=== PATIENT | female | born 1950 | race Caucasian/White ===

== ENCOUNTER 2022-05-22 15:52 | Outpatient (CLI) | payer OTHER, MEDICARE, SELFPAY | END 2022-05-22 15:53 | disposition home or self-care (01) | PROVIDERS: PCP Family Medicine; Visit Provider Family Medicine | DX: Z00.00 Encounter for general adult medical examination without abnormal findings (principal); I10 Essential (primary) hypertension; E78.5 Hyperlipidemia, unspecified; Z11.59 Encounter for screening for other viral diseases | CPT/HCPCS: 80053; 80061; 86803 ==

== ENCOUNTER 2022-05-31 14:37 | Outpatient (CLI) | payer OTHER, MEDICARE, SELFPAY ==
--- NOTE | 2022-05-31 15:00 | CRLHL7_ITS ---
For Patients: As a result of the Century Cures Act, medical imaging exams and procedure reports are released immediately into your electronic medical record. You may view this report before your referring provider. If you have questions, please contact your health care provider. CLINICAL HISTORY: Screening TECHNIQUE: Elias scale and color Doppler images were acquired of the abdominal aorta and iliac arteries. FINDINGS: There is no evidence of aneurysm formation or aortic dissection. Proximally, the aorta measures 1.7 cm in diameter, mid 1.7 cm, and distally tapers to a measurement of 1 cm. The common iliac arteries are patent and measure 0.5 cm on the left and 0.5 cm in diameter on the right. Incidental 5 centimeter left hepatic cyst IMPRESSION: No abdominal aortic aneurysm. Dictated by Laura Turcios MD @ 05/31/2022 3:37:50 PM (Electronically Signed)
--- NOTE | 2022-05-31 16:00 | CRLHL7_ITS ---
For Patients: As a result of the Century Cures Act, medical imaging exams and procedure reports are released immediately into your electronic medical record. You may view this report before your referring provider. If you have questions, please contact your health care provider. INDICATION: Lung cancer screening. TECHNIQUE: Low-dose lung cancer screening non-contrast CT chest. Dose reduction techniques were used. COMPARISON: None. FINDINGS: NODULES: 5 millimeter peripheral left lower lobe pulmonary nodule on LUNGS AND PLEURA: Mild emphysema. MEDIASTINUM: Normal. CORONARY ARTERY CALCIFICATION: None LIMITED UPPER ABDOMEN: Left 4.6 centimeter cyst MUSCULOSKELETAL: Suspicious bony lesions IMPRESSION: 1. 5 millimeter left lobe LUNG-RADS CATEGORY: 2: Benign. Continue annual screening with low-dose CT chest in 12 months. Please note that all CT scans at this facility use dose modulation, iterative reconstruction, and/or weight-based dosing when appropriate to reduce radiation dose to as low as reasonably achievable. Dictated by Laura Turcios MD @ 05/31/2022 3:49:42 PM (Electronically Signed)
== END 2022-05-31 14:38 | disposition home or self-care (01) ==
LOC: US 14:39
PROVIDERS: PCP Family Medicine; Visit Provider Family Medicine
DX: Z13.6 Encounter for screening for cardiovascular disorders (principal); F17.200 Nicotine dependence, unspecified, uncomplicated; Z12.2 Encounter for screening for malignant neoplasm of respiratory organs; R91.1 Solitary pulmonary nodule; M89.9 Disorder of bone, unspecified
CPT/HCPCS: 71271; 76706

== ENCOUNTER 2022-06-01 11:45 | Outpatient (CLI) | payer OTHER, MEDICARE, SELFPAY ==
--- NOTE | 2022-06-01 15:00 | CRLHL7_ITS ---
For Patients: As a result of the Century Cures Act, medical imaging exams and procedure reports are released immediately into your electronic medical record. You may view this report before your referring provider. If you have questions, please contact your health care provider. DXA BONE MINERAL DENSITY STUDY Reason for exam: Osteoporosis. Current height (in): 66. Weight (lb): 140. Menopause age: 22. Ethnicity: White. 1. Have you had a previous hip or vertebral fracture? No. 2. Have you had any fractures during your adult life which did not result from significant trauma (e.g., auto accident)? No. 3. Did either of your parents have a hip fracture? No. 4. Do you smoke? No. 5. Have you ever taken Glucocorticoids? No. 6. Do you have rheumatoid arthritis? No. 7. Do you have secondary osteoporosis? No. 8. Do you drink 3 or more alcoholic drinks per day? No. 9. Are you being treated for osteoporosis? No. 10. Have you ever taken any of the following medications: Actonel, Evista, Fosamax, Miacalcin, Reclast, Boniva, Forteo, HRT (i.e., estrogen/hormone therapy), Protelos, Prolia, Vitamin D, Calcium, other ??? please specify. ANSWER: No. 11. Do you have any of the following medical conditions: Anorexia or bulimia, asthma or emphysema, end stage renal disease, hyperparathyroidism, any seizure disorders, cancer, inflammatory bowel diseases, hysterectomy, other ??? please specify. ANSWER: No. 12. What was your maximum height (inches)? Not provided. 13. Do you perform weight bearing exercise regularly? Not provided. 14. Do you regularly consume dairy products? Not provided. 15. Do you drink caffeinated beverages? Not provided. If female: 16. At what age did your period start? Not provided. 17. Are you premenopausal? No. 18. How many full-term pregnancies have you had? Not provided. 19. Have you ever missed your period for more than 6 months in a row (not including or menopause)? Not provided. TECHNIQUE: Bone mineral density study was performed using the [employer]. FINDINGS: The results of the study expressed as bone mineral density (BMD) are as follows: Lumbar spine L1 to L4: BMD: 0.779 g/cm2. T-score: -2.4. Z-score: -0.3 Neck Left: BMD: 0.555 g/cm2. T-score: -2.6. Z-score: -0.8 Right: BMD: 0.623 g/cm2. T-score: -2.0. Z-score: -0.2 Total Left: BMD: 0.775 g/cm2. T-score: -1.4. Z-score: 0.2 Right: BMD: 0.838 g/cm2. T-score: -0.9. Z-score: 0.7 IMPRESSION: Osteoporosis. *Comparison exams done prior to 08/2019 were performed on different unit, [facility]. COMPARISON: Compared with scan of 07/21/2020, the bone mineral density has decreased by 1.2 percent at the spine and increased by 2.3 percent at the hip. DOMO HOYOS M.D. Diagnostic/Nuclear Medicine Radiologist [email or web address] JMN:ryan davis/Dictated by: Domo Hoyos MD @ 06/01/2022 2:36:00 PM (Electronically Signed)
== END 2022-06-01 11:46 | disposition home or self-care (01) ==
PROVIDERS: PCP Family Medicine; Visit Provider Family Medicine
DX: M81.0 Age-related osteoporosis without current pathological fracture (principal)
CPT/HCPCS: 77080

== ENCOUNTER 2022-08-14 14:34 | Outpatient (CLI) | payer OTHER, MEDICARE, SELFPAY ==
--- NOTE | 2022-08-14 14:40 | CRLHL7_ITS ---
For Patients: As a result of the Century Cures Act, medical imaging exams and procedure reports are released immediately into your electronic medical record. You may view this report before your referring provider. If you have questions, please contact your health care provider. BILATERAL SCREENING MAMMOGRAM WITH COMPUTER-AIDED DETECTION AND TOMOSYNTHESIS TECHNIQUE: CC and MLO views were obtained. These mammographic images have been obtained using full-field digital technique. These mammographic images were interpreted with the benefit of computer-aided detection. Breast Tomosynthesis was used in this interpretation. COMPARISON FILM: 06/03/21, 01/12/20, 12/02/18. FINDINGS: The breasts are heterogeneously dense, which may obscure small masses IMPRESSION: There is no radiographic evidence for malignancy. ASSESSMENT: BI-RADS Category 2: Benign RECOMMENDATION: Routine screening mammogram in 1 year. A lay language report of this examination will be provided to the patient. Lobito Vogel M.D. Diagnostic Radiologist [email or web address] LUIS FERNANDO/Dictated by: Lobito Vogel MD @ 08/15/2022 1:24:00 PM (Electronically Signed)
== END 2022-08-14 14:35 | disposition home or self-care (01) ==
LOC: MAMMO 14:35
PROVIDERS: PCP Family Medicine; Visit Provider Family Medicine
DX: Z12.31 Encounter for screening mammogram for malignant neoplasm of breast (principal); R92.2 Inconclusive mammogram
CPT/HCPCS: 77063; 77067

== ENCOUNTER 2023-06-04 14:35 | Outpatient (CLI) | payer MEDICARE, OTHER, SELFPAY ==
--- NOTE | 2023-06-04 15:00 | CT_ITS ---
Patient: BERYL YOST Facility:?[facility] Patient ID:?[id number] Site Patient ID:?[id number]. Site :?[id number] Study:?CT-Chest LOW DOSE-06/04/2023 3:00:08 PM Ordering Physician:?DR. PORTILLO Final Report: INDICATION: Lung cancer screening. History of smoking. High risk patient with greater than 20 pack-year smoking history. TECHNIQUE: Low-dose lung cancer screening non-contrast CT chest. Dose reduction techniques were used. COMPARISON: 05/31/[address] FINDINGS: NODULES: 5 mm anterior left lower lobe nodule image 120 series 3, unchanged. No new nodules. LUNGS AND PLEURA: Hyperinflation. MEDIASTINUM: Normal. CORONARY ARTERY CALCIFICATION: None. LIMITED UPPER ABDOMEN: Liver cysts. MUSCULOSKELETAL: Normal. IMPRESSION: 1. Negative for lung cancer screening purposes. LUNG-RADS CATEGORY 2: Benign. Continue annual screening with low-dose CT chest in 12 months. Please note that all CT scans at this facility use dose modulation, iterative reconstruction, and/or weight-based dosing when appropriate to reduce radiation dose to as low as reasonably achievable. Dictated by George Diez MD @ 06/05/2023 10:28:56 AM Signed by:?George Diez MD @06/05/2023 10:28:56 AM (Electronic Signature)
== END 2023-06-04 14:36 | disposition home or self-care (01) ==
PROVIDERS: PCP Family Medicine; Visit Provider Family Medicine
DX: Z12.2 Encounter for screening for malignant neoplasm of respiratory organs (principal); Z13.6 Encounter for screening for cardiovascular disorders; F17.200 Nicotine dependence, unspecified, uncomplicated
CPT/HCPCS: 71271

== ENCOUNTER 2023-08-23 14:43 | Outpatient (CLI) | payer OTHER, MEDICARE, SELFPAY ==
--- NOTE | 2023-08-23 15:00 | CRLHL7_ITS ---
For Patients: As a result of the Century Cures Act, medical imaging exams and procedure reports are released immediately into your electronic medical record. You may view this report before your referring provider. If you have questions, please contact your health care provider. BILATERAL SCREENING MAMMOGRAM WITH COMPUTER-AIDED DETECTION AND TOMOSYNTHESIS TECHNIQUE: CC and MLO views were obtained. These mammographic images have been obtained using full-field digital technique. These mammographic images were interpreted with the benefit of computer-aided detection. Breast Tomosynthesis was used in this interpretation. COMPARISON FILM: 08/14/22, 06/03/21, 01/12/20. FINDINGS: The breasts are heterogeneously dense, which may obscure small masses. IMPRESSION: There is no radiographic evidence for malignancy. ASSESSMENT: BI-RADS Category 1: Negative RECOMMENDATION: Routine screening mammogram in 1 year. A lay language report of this examination will be provided to the patient. Lobito Vogel M.D. Diagnostic Radiologist [email or web address] SP/Dictated by: Lobito Vogel MD @ 08/24/2023 10:01:00 AM (Electronically Signed)
== END 2023-08-23 14:44 | disposition home or self-care (01) ==
LOC: MAMMO 14:44
PROVIDERS: PCP Family Medicine; Visit Provider Family Medicine
DX: Z12.31 Encounter for screening mammogram for malignant neoplasm of breast (principal); R92.2 Inconclusive mammogram
CPT/HCPCS: 77063; 77067

== ENCOUNTER 2023-08-27 14:33 | Outpatient (CLI) | payer OTHER, MEDICARE, SELFPAY ==
[2023-08-27 22:37] LABS: Creatinine Urine 61.1 mg/dL
[2023-08-27 22:41] LABS: Microalbumin Creatinine Ratio 10 mg/g (0-30); Microalbumin Urine < 1 mg/dL
== END 2023-08-27 14:34 | disposition home or self-care (01) ==
PROVIDERS: PCP Family Medicine; Visit Provider Family Medicine
DX: I10 Essential (primary) hypertension (principal); E78.2 Mixed hyperlipidemia; Z79.899 Other long term (current) drug therapy
CPT/HCPCS: 80053; 80061; 82043; 82570

== ENCOUNTER 2024-06-04 07:45 | Outpatient (CLI) | payer OTHER, MEDICARE, SELFPAY ==
--- NOTE | 2024-06-04 08:00 | CRLHL7_ITS ---
For Patients: As a result of the Century Cures Act, medical imaging exams and procedure reports are released immediately into your electronic medical record. You may view this report before your referring provider. If you have questions, please contact your health care provider. INDICATION: Lung cancer screening. Significant smoking history. TECHNIQUE: Low-dose volumetric helical scanning of the thorax was performed without IV contrast material. Coronal and sagittal reconstructions were obtained. COMPARISON: None FINDINGS: A potentially calcified 5 mm 5 mm left lower lobe nodule is demonstrated on image 127 of series 3. The lungs are clear. There is no significant airway abnormality. No pleural effusion is demonstrated. There is no mediastinal or hilar lymph adenopathy. The heart size is normal. Images of the upper abdomen demonstrate a 2 cm hyperdense left renal cyst versus solid mass and a 5 cm liver cyst. IMPRESSION: 1. Negative for the purpose of lung cancer screening. Lung-RADS CATEGORY 2: BENIGN APPEARANCE OR BEHAVIOR: Continue annual screening with low-dose chest CT in 12 months. 2. 2 cm hyperdense left renal cyst versus solid mass. Renal ultrasound recommended. 3. 5 cm liver cyst. Please note that all CT scans at this facility use dose modulation, iterative reconstruction, and/or weight-based dosing when appropriate to reduce radiation dose to as low as reasonably achievable. Dictated by Joel Barbosa MD @ 06/05/2024 5:52:59 AM (Electronically Signed)
== END 2024-06-04 07:46 | disposition home or self-care (01) ==
LOC: CT 07:45
PROVIDERS: PCP Family Medicine; Visit Provider Family Medicine
DX: Z12.2 Encounter for screening for malignant neoplasm of respiratory organs (principal); F17.210 Nicotine dependence, cigarettes, uncomplicated; N28.1 Cyst of kidney, acquired; K76.89 Other specified diseases of liver
CPT/HCPCS: 71271

== ENCOUNTER 2024-06-12 10:30 | Outpatient (CLI) | payer OTHER, MEDICARE, SELFPAY ==
--- NOTE | 2024-06-12 10:45 | CRLHL7_ITS ---
For Patients: As a result of the Century Cures Act, medical imaging exams and procedure reports are released immediately into your electronic medical record. You may view this report before your referring provider. If you have questions, please contact your health care provider. INDICATION: 2 cm hyperdense left renal cyst versus solid mass as seen on CT TECHNIQUE: Conventional two-dimensional grayscale ultrasound of the kidneys and bladder. COMPARISON: Low-dose chest CT of 06/04/2024 FINDINGS: A simple 2.3 x 1.9 x 1.8 cm lateral mid left renal parenchymal cyst is demonstrated as well as a simple 0.8 cm superior right renal cyst. The kidneys are otherwise unremarkable. No hydronephrosis is evident. The bladder is grossly negative. IMPRESSION: Simple 2.3 cm left renal cyst and 0.8 cm right renal cyst Dictated by Joel Barbosa MD @ 06/12/2024 2:58:50 PM (Electronically Signed)
== END 2024-06-12 10:31 | disposition home or self-care (01) ==
LOC: US 10:31
PROVIDERS: PCP Family Medicine; Visit Provider Family Medicine
DX: N28.89 Other specified disorders of kidney and ureter (principal); N28.1 Cyst of kidney, acquired
CPT/HCPCS: 76770

== ENCOUNTER 2024-09-04 07:46 | Outpatient (CLI) | payer MEDICARE, SELFPAY ==
--- NOTE | 2024-09-04 08:15 | CRLHL7_ITS ---
For Patients: As a result of the Century Cures Act, medical imaging exams and procedure reports are released immediately into your electronic medical record. You may view this report before your referring provider. If you have questions, please contact your health care provider. INDICATION: bilateral screening mammogram, asymptomatic 73 year old female COMPARISON: 08/23/2023, 08/14/2022, 06/03/2021 TECHNIQUE: Digital mammogram in CC and MLO projections including computer-aided detection (CAD) and tomosynthesis. BREAST COMPOSITION: There are scattered areas of fibroglandular density. FINDINGS: No suspicious findings. ASSESSMENT: BI-RADS 2 Benign RECOMMENDATION: Annual screening mammogram. A lay language report of this examination will be provided to the patient. Dictated by: Lobito Vogel MD @ 09/04/2024 10:19:24 (Electronically Signed)
== END 2024-09-04 07:47 | disposition home or self-care (01) ==
LOC: MAMMO 07:46
PROVIDERS: PCP Family Medicine; Visit Provider Family Medicine
DX: Z12.31 Encounter for screening mammogram for malignant neoplasm of breast (principal)
CPT/HCPCS: 77063; 77067

== ENCOUNTER 2024-09-12 11:17 | Outpatient (CLI) | payer MEDICARE, SELFPAY | END 2024-09-12 11:18 | disposition home or self-care (01) | PROVIDERS: PCP Family Medicine; Visit Provider Family Medicine | DX: E78.5 Hyperlipidemia, unspecified (principal); I10 Essential (primary) hypertension | CPT/HCPCS: 80053; 80061; 82043; 82570 ==

== ENCOUNTER 2024-09-25 10:05 | Outpatient (CLI) | payer MEDICARE, SELFPAY ==
--- NOTE | 2024-09-25 10:30 | CRLHL7_ITS ---
For Patients: As a result of the Century Cures Act, medical imaging exams and procedure reports are released immediately into your electronic medical record. You may view this report before your referring provider. If you have questions, please contact your health care provider. DXA BONE MINERAL DENSITY STUDY Reason for exam: Age-related osteoporosis without current pathology. Current height (in): 65. Weight (lb): 140. Menopause age: 22. Ethnicity: White. 1. Have you had a previous hip or vertebral fracture? No. 2. Have you had any fractures during your adult life which did not result from significant trauma (e.g., auto accident)? No. 3. Did either of your parents have a hip fracture? No. 4. Do you smoke? No. 5. Have you ever taken Glucocorticoids? Yes. 6. Do you have rheumatoid arthritis? No. 7. Do you have secondary osteoporosis? No. 8. Do you drink 3 or more alcoholic drinks per day? No. 9. Are you being treated for osteoporosis? No. 10. Have you ever taken any of the following medications: Actonel, Evista, Fosamax, Miacalcin, Reclast, Boniva, Forteo, HRT (i.e. estrogen/hormone therapy), Protelos, Prolia, Vitamin D, Calcium, other ??? please specify. ANSWER: Yes, Vitamin D. 11. Do you have any of the following medical conditions: Anorexia or bulimia, asthma or emphysema, end stage renal disease, hyperparathyroidism, any seizure disorders, cancer, inflammatory bowel diseases, hysterectomy, other ??? please specify. ANSWER: Yes, cancer, skin cancer. 12. What was your maximum height (inches)? 66. 13. Do you perform weight bearing exercise regularly? No. 14. Do you regularly consume dairy products? No. 15. Do you drink caffeinated beverages? No. 16. At what age did your period start? 13. 17. Are you premenopausal? No. 18. How many full term pregnancies have you had? 2. 19. Have you ever missed your period for more than 6 months in a row (not including or menopause)? No. TECHNIQUE: Bone mineral density study was performed using the [employer]. FINDINGS: The results of the study expressed as bone mineral density (BMD) are as follows: Lumbar spine L1 to L4: BMD: 0.765 g/cm2. T-score: -2.6. Z-score: -0.3. Neck Left: BMD: 0.539 g/cm2. T-score: -2.8. Z-score: -0.8. Right: BMD: 0.573 g/cm2. T-score: -2.5 . Z-score: -0.5. Total Left: BMD: 0.759 g/cm2. T-score: -1.5 . Z-score: 0.2. Right: BMD: 0.831 g/cm2. T-score: -0.9. Z-score: 0.8. IMPRESSION: Osteoporosis. *Comparison exams done prior to 08/2019 were performed on different unit, [employer]. COMPARISON: Compared with scan of 06/01/2022, the bone mineral density has decreased by 1.8 percent at the spine and decreased by 1.4 percent at the hip. Compared with scan of 07/21/2020, the bone mineral density has decreased by 1.2 percent at the spine and increased by 2.3 percent at the hip. Zunilda Arvizu M.D. Diagnostic Radiologist [email or web address] EDDIE/andi SP/Dictated by: Zunilda Arvizu MD @ 09/29/2024 7:13:00 AM (Electronically Signed)
== END 2024-09-25 10:06 | disposition home or self-care (01) ==
LOC: RAD 10:06
PROVIDERS: PCP Family Medicine; Visit Provider Family Medicine
DX: M81.0 Age-related osteoporosis without current pathological fracture (principal); F17.200 Nicotine dependence, unspecified, uncomplicated
CPT/HCPCS: 77080

== ENCOUNTER 2024-11-11 12:58 | Outpatient (CLI) | payer MEDICARE, SELFPAY | END 2024-11-11 12:59 | disposition home or self-care (01) | LOC: FRMREF 12:59 | PROVIDERS: PCP Family Medicine; Visit Provider Family Medicine | DX: M81.0 Age-related osteoporosis without current pathological fracture (principal) | CPT/HCPCS: 82306 ==